=== PATIENT | female | born 1990 | race Caucasian/White ===

== ENCOUNTER 2019-10-23 23:23 | Inpatient (IN) ==
[2019-10-23] MEDS ORDERED: ACTIVATED CHARCOAL/SORBITOL 25 GM/120 ML TUBE PO STA (23:40)
--- NOTE | 2019-10-23 23:43 | Emergency Department Note ---
History of Present Illness General Chief complaint: Overdose (Intentional) Stated complaint: Ibuprophen OD Time Seen by Provider: 10/23/19 23:40 Source: patient Mode of arrival: EMS Limitations: no limitations History of Present Illness Provider complaint: intentional overdose Onset (ago): hour(s) 1 Associated symptoms: + denies other symptoms Treatments prior to arrival: none This 29-year-old female brought in from home via EMS due to intentional overdose. Patient states she does have a history of anxiety and depression and does do weekly telehealth visits with a therapist. Patient states she has previously had suicidal ideation and thoughts of OD but did not actually attempt. Patient states proximally 1 hour ago due to increased thoughts of depression and suicidality, she overdosed on a handful of 200 mg ibuprofen tablets. Patient states she estimates she took 30 tablets. Patient states following this she felt worse and confided in her fianc. Fianc called 911. Patient states she tried to induce emesis by sticking a toothbrush in the back of her throat however upon vomiting she only regurgitated clear fluid, no pill fragments were noted. Patient denies any other nausea vomiting, stomach pain, dizziness, headaches. Patient states she was drinking alcohol earlier in the night as well. Denies any additional coingestion. Patient states the isolation at home has contributed to her worsening symptoms as well as recent loss of her job due to the current pandemic. Pt seen during a time of high acuity and national emergency pandemic while wearing PPE. Home Medications Home Medications Medication Instructions Recorded Confirmed Type citalopram 20 mg PO DAILY 10/24/19 10/24/19 History Allergies Allergy/AdvReac Type Severity Reaction Status Date / Time No Known Allergies Allergy Unverified 10/24/19 00:10 Past Med/Surg History Medical History Depression Social History Preferred Language: Brazilian Communication Ability: Effective Beliefs That Will Affect Care: None Feels Safe at Home: Yes Smoking Status: Never smoker Review of Systems See HPI for pertinent positives & negatives. and A total of 10 systems reviewed and were otherwise negative Physical Exam Vital Signs Vital Signs - 24 hr 10/23/19 23:42 10/23/19 23:44 10/23/19 23:51 Temperature 36.9 C Temperature Source Oral Pulse Rate 92 H 78 Pulse Rate [Apical] Pulse Rate from SpO2 Sensor 91 H Respiratory Rate 19 15 Respiratory Effort / Characteristics Non-Labored Spontaneous Respiratory Depth Normal Blood Pressure 126/79 126/79 Blood Pressure [Left Arm] Blood Pressure Mean 87 94 Blood Pressure Mean [Left Arm] Pulse Oximetry 96 99 Oxygen Delivery Method Room Air Room Air Sepsis Recent Fever Within 48 Hours No Sepsis New/Unexplained Change in Mental Status No Sepsis Action Taken by Nursing No Action Required 10/24/19 00:00 10/24/19 00:02 10/24/19 00:30 Temperature Temperature Source Pulse Rate 74 77 Pulse Rate [Apical] 74 77 Pulse Rate from SpO2 Sensor 75 77 Respiratory Rate 23 21 18 Respiratory Effort / Characteristics Respiratory Depth Blood Pressure 133/80 125/85 Blood Pressure [Left Arm] 133/80 125/85 Blood Pressure Mean 90 88 Blood Pressure Mean [Left Arm] 97 98 Pulse Oximetry 97 100 100 Oxygen Delivery Method Room Air Room Air Sepsis Recent Fever Within 48 Hours Sepsis New/Unexplained Change in Mental Status Sepsis Action Taken by Nursing 10/24/19 01:00 10/24/19 01:11 10/24/19 02:07 Temperature Temperature Source Pulse Rate 94 H 73 Pulse Rate [Apical] 76 Pulse Rate from SpO2 Sensor 93 H 73 Respiratory Rate 19 18 18 Respiratory Effort / Characteristics Respiratory Depth Blood Pressure 124/89 131/73 Blood Pressure [Left Arm] 124/89 Blood Pressure Mean 96 90 Blood Pressure Mean [Left Arm] 100 Pulse Oximetry 98 98 95 Oxygen Delivery Method Room Air Room Air Sepsis Recent Fever Within 48 Hours Sepsis New/Unexplained Change in Mental Status Sepsis Action Taken by Nursing GENERAL: alert, well appearing, well nourished, no distress, non-toxic, tearful, anxious EYE EXAM: normal conjunctiva, PERRL and EOM's grossly intact OROPHARYNX: no exudate, no erythema, lips, buccal mucosa, and tongue normal and mucous membranes are moist NECK: supple, no nuchal rigidity, no adenopathy, non-tender LUNGS: Clear to auscultation. Normal chest wall mechanics, no w/r/r HEART: no murmurs, S1 normal and S2 normal ABDOMEN: abdomen soft, non-tender, normo-active bowel sounds, no masses, no rebound or guarding. BACK: Back is symmetrical on inspection and there is no deformity, no midline tenderness, no CVA tenderness. SKIN: no rashes and no bruising UPPER EXTREMITIES: upper extremities are grossly normal. FROM, nml pulses b/l. LOWER EXTREMITIES: No pitting edema. FROM, nml pulses b/l. NEURO EXAM: Normal sensorium, cranial nerves II-XII grossly intact, normal speech, no gross weakness of arms, no gross weakness of legs. Gross sensation intact. Course Course 0118: Pt updated on results. No new or evolving symptoms. 0230: Case discussed with Poison Control as a precaution. Obs for 4 hours after ingestion and then can be medically cleared. 0500: Pt seen and evaluated by psych behavioral health case manager. Pt admitted voluntarily. Pt accepted to [facility]. Administered Medications Citalopram Hydrobromide (Celexa) 20 mg PO DAILY THANIA Stop: 11/23/19 10:14 Last Admin: 10/25/19 08:20 Dose: 20 mg Documented by: [id number] Admin: 10/24/19 11:16 Dose: 10 mg Documented by: [id number] Pantoprazole Sodium (Protonix) 40 mg PO QAM THANIA Stop: 10/26/19 09:01 Last Admin: 10/25/19 08:20 Dose: 40 mg Documented by: [id number] Admin: 10/24/19 11:16 Dose: 40 mg Documented by: [id number] Discontinued Medications Charcoal/Sorbitol (Actidose/Sorbitol 25gm Liq) 50 gm PO NOW STA Stop: 10/23/19 23:41 Last Admin: 10/24/19 00:11 Dose: 50 gm Documented by: [id number] Sodium Chloride (Nss) 500 mls @ 999 mls/hr IV .Q31M THANIA Stop: 11/03/19 10:00 Last Admin: 10/24/19 02:01 Dose: Not Given Documented by: [id number] Admin: 10/24/19 02:01 Dose: Not Given Documented by: [id number] Infusion: 10/24/19 02:00 Dose: 0 mls/hr Documented by: [id number] Admin: 10/24/19 01:00 Dose: 999 mls/hr Documented by: [id number] Infusion: 10/24/19 00:56 Dose: 0 mls/hr Documented by: [id number] Admin: 10/24/19 00:03 Dose: 999 mls/hr Documented by: [id number] Ondansetron HCl (Zofran Odt) 4 mg PO NOW STA Stop: 10/24/19 04:35 Last Admin: 10/24/19 04:42 Dose: 4 mg Documented by: [id number] Medical Decision Making Differential Diagnosis Overdose, toxicologic, infection, hypoglycemia, electrolyte abnormalities, cardiac sources, intracerebral event, neurologic, trauma, mood disorder, infection, hypoglycemia, electrolyte abnormalities, cardiac sources, intracerebral event, toxicologic, neurologic, as well as others. Medical Records Attestation: I reviewed the patient's medical records. Home Medications Current Medication List: was personally reviewed by me Laboratory Data Attestation: I reviewed the patient's lab results. Result diagrams: 10/23/19 23:54 10/24/19 02:28 Lab Results 10/23/19 10/23/19 10/23/19 Range/Units 23:54 23:54 23:54 WBC 5.42 (4.8-10.8) K/uL RBC 4.11 L (4.2-5.4) M/uL Hgb 12.8 (12.0-16.0) g/dL Hct 38.0 (37-47) % MCV 92.5 (80-100) fL MCH 31.1 (25-34) pg MCHC 33.7 (32-36) g/dL RDW Std Deviation 40.4 (36.4-46.3) fL RDW Coeff of Alo 11.9 (11.5-14.5) % Plt Count 315 (130-400) K/uL MPV 9.5 (7.4-10.4) fL Immature Gran % (Auto) 0.2 % Neut % (Auto) 53.9 % Lymph % (Auto) 34.1 % [place] % (Auto) 4.1 % Eos % (Auto) 5.7 % Baso % (Auto) 2.0 % Immature Gran # (Auto) 0.01 (0.00-0.02) K/uL Neut # (Auto) 2.92 (1.4-6.5) K/uL Lymph # (Auto) 1.85 (1.2-3.4) K/uL [place] # (Auto) 0.22 (0.11-0.59) K/uL Eos # (Auto) 0.31 (0-0.5) K/uL Baso # (Auto) 0.11 (0-0.2) K/uL Sodium 137 (136-145) mmol/L Potassium 4.0 (3.5-5.1) mmol/L Chloride 103 (98-107) mmol/L Carbon Dioxide 27 (21-32) mmol/L Anion Gap 7.0 (3-11) BUN 8 (7-18) mg/dl Creatinine 0.78 (0.6-1.2) mg/dl Est Cr Clr Drug Dosing 86.2 ml/min Est GFR ( Amer) 119.1 Est GFR (Non-Af Amer) 102.7 BUN/Creatinine Ratio 10.8 (10-20) Glucose 90 (70-99) mg/dl Calcium 8.8 (8.5-10.1) mg/dl Magnesium 2.2 (1.8-2.4) mg/dl Total Bilirubin 0.2 (0.2-1) mg/dl AST 15 (15-37) U/L ALT 19 (12-78) U/L Alkaline Phosphatase 67 (45-117) U/L Total Protein 8.2 (6.4-8.2) gm/dl Albumin 4.5 (3.4-5.0) gm/dl Globulin 3.7 (2.5-4.0) gm/dl Albumin/Globulin Ratio 1.2 (0.9-2) Lipase 97 (73-393) U/L HCG, Qual (Negative) Specimen Hemolysis Urine Color Urine Appearance (Clear) Urine pH (4.5-7.5) Ur Specific Bailey (1.000-1.030) Urine Protein (Negative) Urine Glucose (UA) (Negative) Urine Ketones (Negative) Urine Blood (Negative) Urine Nitrite (Negative) Urine Bilirubin (Negative) Urine Urobilinogen (Negative) Ur Leukocyte Esterase (Negative) Salicylates < 1.7 L (2.8-20) mg/dl Urine Opiates Screen (Neg) Ur Methadone, Qual (Neg) Acetaminophen < 2 L (10-30) ug/ml Urine Barbiturates (Neg) Ur Phencyclidine (PCP) (Neg) U Amphetamin/Meth Scrn (Neg) MDMA (Ecstasy) Screen (Neg) U Benzodiazepines Scrn (Neg) Ur Cocaine Metabolite (Neg) U Marijuana (THC) Screen (Neg) Ethyl Alcohol mg/dL (0-3) mg/dl 05/24/20 05/24/20 05/25/20 Range/Units 23:54 23:54 00:05 WBC (4.8-10.8) K/uL RBC (4.2-5.4) M/uL Hgb (12.0-16.0) g/dL Hct (37-47) % MCV (80-100) fL MCH (25-34) pg MCHC (32-36) g/dL RDW Std Deviation (36.4-46.3) fL RDW Coeff of Alo (11.5-14.5) % Plt Count (130-400) K/uL MPV (7.4-10.4) fL Immature Gran % (Auto) % Neut % (Auto) % Lymph % (Auto) % [place] % (Auto) % Eos % (Auto) % Baso % (Auto) % Immature Gran # (Auto) (0.00-0.02) K/uL Neut # (Auto) (1.4-6.5) K/uL Lymph # (Auto) (1.2-3.4) K/uL [place] # (Auto) (0.11-0.59) K/uL Eos # (Auto) (0-0.5) K/uL Baso # (Auto) (0-0.2) K/uL Sodium (136-145) mmol/L Potassium (3.5-5.1) mmol/L Chloride (98-107) mmol/L Carbon Dioxide (21-32) mmol/L Anion Gap (3-11) BUN (7-18) mg/dl Creatinine (0.6-1.2) mg/dl Est Cr Clr Drug Dosing ml/min Est GFR ( Amer) Est GFR (Non-Af Amer) BUN/Creatinine Ratio (10-20) Glucose (70-99) mg/dl Calcium (8.5-10.1) mg/dl Magnesium (1.8-2.4) mg/dl Total Bilirubin (0.2-1) mg/dl AST (15-37) U/L ALT (12-78) U/L Alkaline Phosphatase (45-117) U/L Total Protein (6.4-8.2) gm/dl Albumin (3.4-5.0) gm/dl Globulin (2.5-4.0) gm/dl Albumin/Globulin Ratio (0.9-2) Lipase (73-393) U/L HCG, Qual Negative (Negative) Specimen Hemolysis Urine Color Urine Appearance (Clear) Urine pH (4.5-7.5) Ur Specific Bailey (1.000-1.030) Urine Protein (Negative) Urine Glucose (UA) (Negative) Urine Ketones (Negative) Urine Blood (Negative) Urine Nitrite (Negative) Urine Bilirubin (Negative) Urine Urobilinogen (Negative) Ur Leukocyte Esterase (Negative) Salicylates (2.8-20) mg/dl Urine Opiates Screen Neg (Neg) Ur Methadone, Qual Neg (Neg) Acetaminophen (10-30) ug/ml Urine Barbiturates Neg (Neg) Ur Phencyclidine (PCP) Neg (Neg) U Amphetamin/Meth Scrn Neg (Neg) MDMA (Ecstasy) Screen Neg (Neg) U Benzodiazepines Scrn Neg (Neg) Ur Cocaine Metabolite Neg (Neg) U Marijuana (THC) Screen Neg (Neg) Ethyl Alcohol mg/dL 129.0 H (0-3) mg/dl 10/24/19 10/24/19 Range/Units 00:05 02:28 WBC (4.8-10.8) K/uL RBC (4.2-5.4) M/uL Hgb (12.0-16.0) g/dL Hct (37-47) % MCV (80-100) fL MCH (25-34) pg MCHC (32-36) g/dL RDW Std Deviation (36.4-46.3) fL RDW Coeff of Alo (11.5-14.5) % Plt Count (130-400) K/uL MPV (7.4-10.4) fL Immature Gran % (Auto) % Neut % (Auto) % Lymph % (Auto) % [place] % (Auto) % Eos % (Auto) % Baso % (Auto) % Immature Gran # (Auto) (0.00-0.02) K/uL Neut # (Auto) (1.4-6.5) K/uL Lymph # (Auto) (1.2-3.4) K/uL [place] # (Auto) (0.11-0.59) K/uL Eos # (Auto) (0-0.5) K/uL Baso # (Auto) (0-0.2) K/uL Sodium 143 (136-145) mmol/L Potassium 3.8 (3.5-5.1) mmol/L Chloride 113 H (98-107) mmol/L Carbon Dioxide 25 (21-32) mmol/L Anion Gap 5.0 (3-11) BUN 6 L (7-18) mg/dl Creatinine 0.72 (0.6-1.2) mg/dl Est Cr Clr Drug Dosing 93.4 ml/min Est GFR ( Amer) 131.2 Est GFR (Non-Af Amer) 113.2 BUN/Creatinine Ratio 9.0 L (10-20) Glucose 101 H (70-99) mg/dl Calcium 8.3 L (8.5-10.1) mg/dl Magnesium (1.8-2.4) mg/dl Total Bilirubin (0.2-1) mg/dl AST (15-37) U/L ALT (12-78) U/L Alkaline Phosphatase (45-117) U/L Total Protein (6.4-8.2) gm/dl Albumin (3.4-5.0) gm/dl Globulin (2.5-4.0) gm/dl Albumin/Globulin Ratio (0.9-2) Lipase (73-393) U/L HCG, Qual (Negative) Specimen Hemolysis Urine Color Yellow Urine Appearance Clear (Clear) Urine pH 6.0 (4.5-7.5) Ur Specific Bailey 1.007 (1.000-1.030) Urine Protein Negative (Negative) Urine Glucose (UA) Negative (Negative) Urine Ketones Negative (Negative) Urine Blood Negative (Negative) Urine Nitrite Negative (Negative) Urine Bilirubin Negative (Negative) Urine Urobilinogen Negative (Negative) Ur Leukocyte Esterase Negative (Negative) Salicylates (2.8-20) mg/dl Urine Opiates Screen (Neg) Ur Methadone, Qual (Neg) Acetaminophen (10-30) ug/ml Urine Barbiturates (Neg) Ur Phencyclidine (PCP) (Neg) U Amphetamin/Meth Scrn (Neg) MDMA (Ecstasy) Screen (Neg) U Benzodiazepines Scrn (Neg) Ur Cocaine Metabolite (Neg) U Marijuana (THC) Screen (Neg) Ethyl Alcohol mg/dL (0-3) mg/dl ECG Data Attestation: I personally reviewed and interpreted this ECG as follows: Indication: + toxicologic Rate (beats per minute): 71 Rhythm: + normal sinus ECG Intervals/blocks: + Normal QRS and + Normal QT ECG [place]: + Normal ECG ST segments: + Normal ST segments Blood Pressure Blood Pressure Findings: Normal blood pressure MDM Narrative Pt here after intentional OD. Labs drawn/sent. Pt with intentional ibuprofen OD and alcohol intoxication. Labs reassuring and BMP rechecked as a precaution. VS stable throughout. Pt given IVF and tolerated activated charcoal without difficulty. Given negative labs and no evolution of symptoms in conjunction with pt's report, I do not suspect additional coingestion. I discussed all results with her. Pt in agreement with inpatient treatment at this time after discussion with psych behavioral health case manager. Impression & Plan Intentional ibuprofen overdose, Suicidal ideation, Depression Discharge Plan Visit Data *Final* Discharge Date/Time: 10/24/19 05:08 Chief Complaint: Overdose (Intentional) Stated Complaint: Ibuprophen OD ED Provider: Summer Bazan Discharge Problem: Intentional ibuprofen overdose, Suicidal ideation, Depression Patient Disposition: Admitted As Inpatient Discharge Instructions Interventions: ED Discharge Assessment Last Done: 10/24/19 05:08 Discharge Problem: Intentional ibuprofen overdose Qualifiers: Encounter type: initial encounter Qualified Code(s): T39.312A - Poisoning by propionic acid derivatives, intentional self-harm, initial encounter Depression Qualifiers: Depression Type: unspecified Qualified Code(s): F32.9 - Major depressive disorder, single episode, unspecified
[2019-10-24] MEDS: SODIUM CHLORIDE 0.9% 500 ML IV SCH ×4 (00:03→02:01)
[2019-10-24 00:16] LABS: Basophils # (auto) 0.11 K/uL (0-0.2); Eosinophils # (auto) 0.31 K/uL (0-0.5); Eosinophils % (auto) 5.7 %; Hemoglobin 12.8 g/dL (12.0-16.0); Immature Granulocytes # (auto) 0.01 K/uL (0.00-0.02); Immature Granulocytes % (auto) 0.2 %; Lymphocytes # (auto) 1.85 K/uL (1.2-3.4); Lymphocytes % (auto) 34.1 %; Mean Corpuscular Hemoglobin 31.1 pg (25-34); Mean Corpuscular Hgb Conc 33.7 g/dL (32-36); Mean Corpuscular Volume 92.5 fL (80-100); Mean Platelet Volume 9.5 fL (7.4-10.4); Monocytes # (auto) 0.22 K/uL (0.11-0.59); Monocytes % (auto) 4.1 %; Neutrophils # (auto) 2.92 K/uL (1.4-6.5); Neutrophils % (auto) 53.9 %; Platelet Count 315 K/uL (130-400); RDW Coefficient of Variation 11.9 % (11.5-14.5); RDW Standard Deviation 40.4 fL (36.4-46.3); Red Blood Count 4.11 M/uL (4.2-5.4); White Blood Count 5.42 K/uL (4.8-10.8)
[2019-10-24 00:20] LABS: Appearance Urine Clear (Clear); Bilirubin Urine Negative (Negative); Blood Urine Negative (Negative); Color Urine Yellow; Glucose Urine UA Negative (Negative); Ketones Urine Negative (Negative); Leukocyte Esterase Urine Negative (Negative); Nitrite Urine Negative (Negative); Protein Urine Negative (Negative); Specific Gravity Urine 1.007 (1.000-1.030); Urobilinogen Urine Negative (Negative)
[2019-10-24 00:40] LABS: Amphetamines+Metham, Urine Neg (Neg); Barbiturates, Urine Neg (Neg); Benzodiazepine, Urine Neg (Neg); Cocaine, Urine Neg (Neg); MDMA (Ecstacy), Urine Neg (Neg); Methadone, Urine Neg (Neg); Opiate, Urine Neg (Neg); Phencyclidine, Urine Neg (Neg)
[2019-10-24 00:41] LABS: Albumin Globulin Ratio 1.2 (0.9-2); Albumin Level 4.5 gm/dl (3.4-5.0); BUN Creatinine Ratio 10.8 (10-20); Bilirubin,Total 0.2 mg/dl (0.2-1); Calcium 8.8 mg/dl (8.5-10.1); Creatinine Clr Calc Pharmacy 86.2 ml/min; Est GFR (African American) 119.1; Est GFR (Non-African American) 102.7; Globulin 3.7 gm/dl (2.5-4.0); Magnesium 2.2 mg/dl (1.8-2.4); Total Protein 8.2 gm/dl (6.4-8.2)
[2019-10-24 00:47] LABS: Acetaminophen < 2 ug/ml (10-30); Salicylate < 1.7 mg/dl (2.8-20)
[2019-10-24 00:57] LABS: Pregnancy Test, Serum Negative (Negative)
[2019-10-24 02:53] LABS: Calcium 8.3 mg/dl (8.5-10.1); Creatinine Clr Calc Pharmacy 93.4 ml/min; Est GFR (African American) 131.2; Est GFR (Non-African American) 113.2; Potassium 3.8 mmol/L (3.5-5.1)
[2019-10-24] MEDS ORDERED: ONDANSETRON 4 MG OD TAB PO STA (04:34)
[2019-10-24] MEDS ORDERED: SODIUM CHLORIDE 0.65% NA SOLN 45 ML (OCEAN) PRN (05:41)
[2019-10-24] MEDS ORDERED: MAGNESIUM HYDROXIDE SUSP 30 ML UDC PO PRN (05:41)
[2019-10-24] MEDS ORDERED: ALUMINUM/MAGNESIUM SUSP 30 ML UDC PO PRN (05:41)
[2019-10-24] MEDS ORDERED: ACETAMINOPHEN 325 MG TAB PO PRN (05:41)
[2019-10-24] MEDS ORDERED: BISMUTH SUBSALICYLATE PER ML OMNICELL CHARGE PO PRN (05:41)
[2019-10-24] MEDS: PANTOprazole 40 MG TAB PO SCH (11:16)
[2019-10-24] MEDS: CITALOPRAM 20 MG TAB PO SCH (11:16)
--- NOTE | 2019-10-24 12:12 | History & Physical ---
Date of Service October 24, 2019 Impression / Recommendations Impression 29 yo female with major depressive disorder admit s/p ibuprofen OD as a suicide attempt. She denies any history of paul. (1) Depression: The patient was admitted to the [facility] ([facility]) on q15 min checks (behavioral with suicide precautions) for safety. The patient will participate in group, recreational, and milieu therapies and will be offered additional individual and family sessions as clinically appropriate. It is not clear that her symptoms are a complete failure of Celexa as pandemic is significant contributing factor, past trials currently not available. Will give Celexa 10 mg today as having some GI upset following OD, declines Zofran, accepting of pantoprazole short course. Consider Celexa 15 mg vs other agent when confirm previous med trials. Depression Type: unspecified Qualified Code(s): F32.9 - Major depressive disorder, single episode, unspecified Inventory Assets Strengths: intelligence, partial wage/benefits, supportive fiance, reports positive relationship with family Needs: safety plan Risk Factors Assessment : Yes Do You Have Access To A Gun?: Yes (boyfriends) Substance Use Disorders: No Previous Attempt: No Family History of Suicide: No Protective Factors Assessment Employed: No (recently furloughed) Stable Relationships: Yes Supportive Family: Yes Psychiatric History Identifying Data ESTHER BLACKBURN is a 29-year-old F who currently lives in [place] with her fiance, has a history of depression, and was admitted on 10/24/19 05:02 on a 201 voluntary commitment s/p ibuprofen OD. Chief Complaint "I felt bad, then we got into a fight, and then I felt worse". History of Present Illness Esther states she has had some suicidal thoughts before but no attempts. The attempt itself was impulsive after a few drinks. She grabbed a handful, estimated 30 of 200 mg Ibuprofen and started to feel sick after. She attempted to induce vomiting but ultimately told her fiance and he called an ambulance. TATE on presentation to the ED was 129. She received charcoal, IVF, and repeat labs and was medically cleared for admission as unable to contract for safety outside of the hospital. Esther states she has been in treatment for depressive symptoms, mainly low mood/negative thoughts for 2 years. Celexa has been "good overall" but doesn't tolerate higher doses "it's like a not in my chest" and states that the past 2 months have been extremely difficult. 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 She is losing routine at home, she generally takes her medication each day but not at the same time. She tries to clean the house but overall not much to do until fiance gets home. Alone she feels guilty and starts to worry about their March and whether it will be able to go as planned. The stress is causing her not to eat well throughout the day and she doesn't seem to enjoy leisure activities as much. Past Psychiatric History Current Psychiatric Diagnosis: anxiety, Depression Outpatient Services: [facility] for 2 years with therapy with Marilyn Keenan. Previous Psych Admissions: none Do You Have Access To A Gun?: Yes (boyfriends) History of Previous Suicide Attempt: No Past Medication Trials: she notes trials of 2 prior antidepressants prior to C elexa, has tolerated Celexa the best, never tried 15 mg Celexa. Note attempted to find names of medication in external med history but predates what is pulling. CRISTELA signed for records. Past Head Trauma/Neuro History History of Concussion/Seizure: No Allergies Allergy/AdvReac Type Severity Reaction Status Date / Time No Known Allergies Allergy Unverified 10/24/19 00:10 Home Medications Home Medications Medication Instructions Recorded Confirmed Type citalopram 20 mg PO DAILY 10/24/19 10/24/19 History Family History Family History of: Depression Family Mental Health History Comment: father, grandfather Alcohol History Hx of Alcohol Use Over the Past 12 Months: Yes (glass of wine or beer a night) AUDIT Total Score: 2 Smoking Use Smoking Status: Never smoker Substance History Hx of Prescription Med Misuse Over the Past 12 Months: No Hx of Over the Counter Med Misuse Over the Past 12 Months: No Hx of Inhalent Misuse Over the Past 12 Months: No Hx of Organic Substance Use Over the Past 12 Months: No Hx of Illegal Substances/Street Drug Use Over Past 12 Months: No Problems as a Result of Past Substance Use: None Identified Problems as a Result of Past Substance Use Comments: denies Personal History Living Arrangements: Home Childhood: moved alot as father --currently parents in [place], has a bro and sister in [place] and another brother in [place] Highest Grade Completed: College Employment Status: Physical Education Teacher Employed (but furloughed) Beliefs That Will Affect Care: None Current Legal Problems: No Hx Legal Problems: No Hx Traumatic Life Events: No Patient History Medical History Depression Social History Preferred Language: Yemeni Communication Ability: Effective Beliefs That Will Affect Care: None Feels Safe at Home: Yes Smoking Status: Never smoker Review of Systems Review of Systems: All systems reviewed & are unremarkable except as noted in HPI & below Physical Exam Psychiatric: Orientation: alert and oriented x 3 Apperance: appropriately dressed and appropriately groomed Eye Contact: + fair eye contact Motor Behavior: steady gait and station and no abnormal motor movements Speech: normal rate/rhythm/volume of speech Affect: + depressed affect Mood: + depressed mood Thought Process: goal directed thought process Thought Content: reality based without delusions did not voice regret of attempt, OK with being hospitalized, no SI this am but unable to contract for safety outside of the hospital. Homicidal Thoughts: denies homicidal thoughts Hallucinations: no auditory hallucinations and no visual hallucinations Cognition: recent memory grossly intact, attention grossly intact and language grossly intact Estimated Intelligence: consistent with education level Insight: + limited insight Judgement: + limited judgement Vital Signs (Past 24 Hours): Last Vital Signs Temp 36.7 C 10/24/19 06:44 Pulse 89 10/24/19 06:45 Resp 18 10/24/19 06:44 BP 102/69 10/24/19 06:45 Pulse Ox 97 10/24/19 05:08 Exam Statement: A physical exam was performed in the ED by Dr. Bazan for the purposes of medical clearance. I accept that physical as correct and adequate for the purposes of the inpatient physical exam. Results & Data ([facility]) Laboratory Results Laboratory Results - last 24 hr 10/23/19 10/23/19 10/23/19 23:54 23:54 23:54 WBC 5.42 RBC 4.11 L Hgb 12.8 Hct 38.0 MCV 92.5 MCH 31.1 MCHC 33.7 RDW Std Deviation 40.4 RDW Coeff of Alo 11.9 Plt Count 315 MPV 9.5 Immature Gran % (Auto) 0.2 Neut % (Auto) 53.9 Lymph % (Auto) 34.1 [place] % (Auto) 4.1 Eos % (Auto) 5.7 Baso % (Auto) 2.0 Immature Gran # (Auto) 0.01 Neut # (Auto) 2.92 Lymph # (Auto) 1.85 [place] # (Auto) 0.22 Eos # (Auto) 0.31 Baso # (Auto) 0.11 Sodium 137 Potassium 4.0 Chloride 103 Carbon Dioxide 27 Anion Gap 7.0 BUN 8 Creatinine 0.78 Est Cr Clr Drug Dosing 86.2 Est GFR ( Amer) 119.1 Est GFR (Non-Af Amer) 102.7 BUN/Creatinine Ratio 10.8 Glucose 90 Calcium 8.8 Magnesium 2.2 Total Bilirubin 0.2 AST 15 ALT 19 Alkaline Phosphatase 67 Total Protein 8.2 Albumin 4.5 Globulin 3.7 Albumin/Globulin Ratio 1.2 Lipase 97 HCG, Qual Specimen Hemolysis Urine Color Urine Appearance Urine pH Ur Specific [place] Urine Protein Urine Glucose (UA) Urine Ketones Urine Blood Urine Nitrite Urine Bilirubin Urine Urobilinogen Ur Leukocyte Esterase Salicylates < 1.7 L Urine Opiates Screen Ur Methadone, Qual Acetaminophen < 2 L Urine Barbiturates Ur Phencyclidine (PCP) U Amphetamin/Meth Scrn MDMA (Ecstasy) Screen U Benzodiazepines Scrn Ur Cocaine Metabolite U Marijuana (THC) Screen Ethyl Alcohol mg/dL 10/23/19 10/23/19 10/24/19 23:54 23:54 00:05 WBC RBC Hgb Hct MCV MCH MCHC RDW Std Deviation RDW Coeff of Alo Plt Count MPV Immature Gran % (Auto) Neut % (Auto) Lymph % (Auto) [place] % (Auto) Eos % (Auto) Baso % (Auto) Immature Gran # (Auto) Neut # (Auto) Lymph # (Auto) [place] # (Auto) Eos # (Auto) Baso # (Auto) Sodium Potassium Chloride Carbon Dioxide Anion Gap BUN Creatinine Est Cr Clr Drug Dosing Est GFR ( Amer) Est GFR (Non-Af Amer) BUN/Creatinine Ratio Glucose Calcium Magnesium Total Bilirubin AST ALT Alkaline Phosphatase Total Protein Albumin Globulin Albumin/Globulin Ratio Lipase HCG, Qual Negative Specimen Hemolysis Urine Color Urine Appearance Urine pH Ur Specific [place] Urine Protein Urine Glucose (UA) Urine Ketones Urine Blood Urine Nitrite Urine Bilirubin Urine Urobilinogen Ur Leukocyte Esterase Salicylates Urine Opiates Screen Neg Ur Methadone, Qual Neg Acetaminophen Urine Barbiturates Neg Ur Phencyclidine (PCP) Neg U Amphetamin/Meth Scrn Neg MDMA (Ecstasy) Screen Neg U Benzodiazepines Scrn Neg Ur Cocaine Metabolite Neg U Marijuana (THC) Screen Neg Ethyl Alcohol mg/dL 129.0 H 10/24/19 10/24/19 00:05 02:28 WBC RBC Hgb Hct MCV MCH MCHC RDW Std Deviation RDW Coeff of Alo Plt Count MPV Immature Gran % (Auto) Neut % (Auto) Lymph % (Auto) [place] % (Auto) Eos % (Auto) Baso % (Auto) Immature Gran # (Auto) Neut # (Auto) Lymph # (Auto) [place] # (Auto) Eos # (Auto) Baso # (Auto) Sodium 143 Potassium 3.8 Chloride 113 H Carbon Dioxide 25 Anion Gap 5.0 BUN 6 L Creatinine 0.72 Est Cr Clr Drug Dosing 93.4 Est GFR ( Amer) 131.2 Est GFR (Non-Af Amer) 113.2 BUN/Creatinine Ratio 9.0 L Glucose 101 H Calcium 8.3 L Magnesium Total Bilirubin AST ALT Alkaline Phosphatase Total Protein Albumin Globulin Albumin/Globulin Ratio Lipase HCG, Qual Specimen Hemolysis Urine Color Yellow Urine Appearance Clear Urine pH 6.0 Ur Specific [place] 1.007 Urine Protein Negative Urine Glucose (UA) Negative Urine Ketones Negative Urine Blood Negative Urine Nitrite Negative Urine Bilirubin Negative Urine Urobilinogen Negative Ur Leukocyte Esterase Negative Salicylates Urine Opiates Screen Ur Methadone, Qual Acetaminophen Urine Barbiturates Ur Phencyclidine (PCP) U Amphetamin/Meth Scrn MDMA (Ecstasy) Screen U Benzodiazepines Scrn Ur Cocaine Metabolite U Marijuana (THC) Screen Ethyl Alcohol mg/dL Current Inpatient Medications Current Inpatient Medications: Current Inpatient Medications Acetaminophen (Tylenol) 650 mg PO Q4H PRN PRN Reason: Headache or Minor Fever Stop: 11/23/19 05:40 Al Hydrox/Mg Hydrox/Simethicone (Maalox) 30 ml PO Q4H PRN PRN Reason: GI Upset Stop: 11/23/19 05:40 Bismuth Subsalicylate (Kaopectate) 15 ml PO PRN PRN PRN Reason: Loose Stool Stop: 11/23/19 05:40 Citalopram Hydrobromide (Celexa) 20 mg PO DAILY THANIA Stop: 06/24/20 10:14 Last Admin: 10/24/19 11:16 Dose: 10 mg Documented by: Hydroxyzine HCl (Vistaril) 50 mg PO HSZ PRN PRN Reason: Insomnia Stop: 11/23/19 05:40 Hydroxyzine HCl (Vistaril) 25 mg PO Q4H PRN PRN Reason: Anxiety Stop: 11/23/19 05:40 Magnesium Hydroxide (Milk Of Magnesia) 30 ml PO DAILY PRN PRN Reason: Constipation Stop: 11/23/19 05:40 Pantoprazole Sodium (Protonix) 40 mg PO QAM THANIA Stop: 10/26/19 09:01 Last Admin: 10/24/19 11:16 Dose: 40 mg Documented by: Sodium Chloride ([place] Nasal) 1 - 2 sprays NA PRN PRN PRN Reason: Nasal Dryness/Congestion Stop: 11/23/19 05:40
--- NOTE | 2019-10-24 13:05 | Electrocardiogram Report ---
Test Reason : Blood Pressure : / mmHG Vent. Rate : 071 BPM Atrial Rate : 071 BPM P-R Int : 118 ms QRS Dur : 074 ms QT Int : 358 ms P-R-T Axes : -42 068 036 degrees QTc Int : 389 ms The first 2 beats represent NSR then Unusual P axis, possible ectopic atrial rhythm Abnormal ECG No previous ECGs available Confirmed by Juan A Ko ([id number]) on 10/24/2019 1:05:23 PM Referred By: REFERRED SELF Confirmed By:Juan A Ko
[2019-10-25] MEDS: CITALOPRAM 20 MG TAB PO SCH (08:20)
[2019-10-25] MEDS: PANTOprazole 40 MG TAB PO SCH (08:20)
--- NOTE | 2019-10-25 13:33 | Psychiatric Progress Note ---
Date of Service October 25, 2019 Impression / Recommendations Impression 29-year-old female with major depressive disorder who was admitted voluntarily for inpatient psychiatric treatment following an ibuprofen OD as a suicide attempt. She denies any history of paul. The patient will participate in group, recreational, and milieu therapies and will be offered additional individual and family sessions as clinically appropriate. It is not clear that her symptoms are a complete failure of Celexa as pandemic is significant contributing factor, past trials currently not available. Pt was given 10mg of citalopram on admission, which was then increased to 20mg. Pt was reporting GI upset related to her overdose, which is improving. Pt has agreed to a family meeting with her fiance, which is scheduled for this afternoon. (1) Depression: 10/23 - The patient was admitted to the [facility] ([facility] health unit) on q15 min checks (behavioral with suicide precautions) for safety. The patient will participate in group, recreational, and milieu therapies and will be offered additional individual and family sessions as clinically appropriate. It is not clear that her symptoms are a complete failure of Celexa as pandemic is significant contributing factor, past trials currently not available. Will give Celexa 10 mg today as having some GI upset following OD, declines Zofran, accepting of pantoprazole short course. Consider Celexa 15 mg vs other agent when confirm previous med trials. 10/24 - Celexa had been increased to 20mg for this morning's dose. Pt denies exacerbation of anxiety at this time, will continue to monitor. Can consider continuation of 20mg of Celexa versus trial of an alternative agent should anxiety worsen related to the medication - Pt is scheduled for a family meeting with her fiance this afternoon - Has standing Thursday at 1200 appointments with her therapist - Will coordinate appointment with her psychiatrist - Pt denies SI, states that while she is happy she is alive, she is still processing a lot at this time Inventory Assets Strengths: intelligence, partial wage/benefits, supportive fiance, reports positive relationship with family Needs: safety plan Risk Factors Assessment : Yes Do You Have Access To A Gun?: Yes (boyfriends) Substance Use Disorders: No Previous Attempt: No Family History of Suicide: No Protective Factors Assessment Employed: No (recently furloughed) Stable Relationships: Yes Supportive Family: Yes Interval History Identifying Information EBONY BLACKBURN is a 29-year-old F who currently lives in [place] with her ficlarita, has a history of depression, and was admitted on 10/24/19 05:02 on a 201 voluntary commitment s/p ibuprofen OD. Chief Complaint "Um, good. The day started off a little rougher." Review of Systems Notes Constitutional: denied Cardiovascular: denied Respiratory: denied Gastrointestinal: mild GI upset, improved from last evening Neurological: denied Psychiatric: denies symptoms other than stated above Total of at least 10 systems reviewed, pertinent positives as above and in HPI. Sleep Information Total Hours of Sleep: 6.5 Sleep Comments: pt on q-15 minute checks Meal Information Percent Meal Consumed - Breakfast: 25 Percent Meal Consumed - Lunch: 10 Percent Meal Consumed - Dinner: 100 Nutrition Comment: some GI upset r/t O/D; is taking small sips of pratik hayden Subjective Subjective Patient was seen & assessed and interval progress reviewed with treatment team. Staff report the patient has reported situational stressors which she believes to be related to her overdose. Pt will be encouraged to schedule a family meeting with her fiance, or other identified support. Pt was seen today to assess progress since admission. Pt states she is doing better now, admitting that her morning "started off a little rougher." Pt states that she found herself processing recent events and "it all sunk in. Disbelief, embarrassment, shame." Pt initially states "I don't know" when asked about her reflection on her suicide attempt. After thinking a bit longer, she states "I think I'm ultimately happy I'm alive, but it's still fresh. I can't really say." Pt does deny active SI presently, but admits to ongoing stressors. Pt is excited for her family meeting with her fiance this afternoon, stating "I really miss him." She states she has also been calling her parents and siblings today and states most of them are supportive as well. Pt denies any concerns related to the family meeting. She does express concern related to titration of citalopram, r eiterating the exacerbation of anxiety that she noticed with a previous trial of 20mg. She states that she is not yet experiencing similar feelings, but was reassured that we could discuss other medication options if this should occur. Pt states she has standing appointments with her therapist on Wednesdays at noon, and is understanding of need to confirm a psychiatry appointment. Otherwise, the patient reports benefit from processing with staff in groups and individually. She denies other needs at this time. Physical Exam Psychiatric Orientation: alert, oriented x 3 and cooperative (and pleasant) Apperance: appropriately dressed, appropriately groomed and appeared stated age Eye Contact: good eye contact Motor Behavior: steady gait and station and no abnormal motor movements Speech: normal rate/rhythm/volume of speech Affect: + anxious affect and mood congruent with affect Mood: + depressed mood ("good, the day started off a little rougher") and + anxious mood Thought Process: goal directed thought process, clear/coherent thought process and thought association intact Thought Content: reality based without delusions and + guilt (reporting shame related to her overdose); no hopelessness Suicidal Thoughts: denies suicidal thoughts Homicidal Thoughts: denies homicidal thoughts Hallucinations: no auditory hallucinations and no visual hallucinations Cognition: attention grossly intact and language grossly intact Estimated Intelligence: consistent with education level Insight: + fair insight Judgement: + fair judgement Vital Signs (Past 24 Hours) Last Vital Signs Temp 36.7 C 10/25/19 06:38 Pulse 85 10/25/19 06:38 Resp 18 10/25/19 06:38 BP 108/70 10/25/19 06:38 Pulse Ox 97 10/24/19 05:08 Results & Data ([facility]) Current Inpatient Medications Current Inpatient Medications: Current Inpatient Medications Acetaminophen (Tylenol) 650 mg PO Q4H PRN PRN Reason: Headache or Minor Fever Stop: 11/23/19 05:40 Al Hydrox/Mg Hydrox/Simethicone (Maalox) 30 ml PO Q4H PRN PRN Reason: GI Upset Stop: 11/23/19 05:40 Bismuth Subsalicylate (Kaopectate) 15 ml PO PRN PRN PRN Reason: Loose Stool Stop: 11/23/19 05:40 Citalopram Hydrobromide (Celexa) 20 mg PO DAILY THANIA Stop: 11/23/19 10:14 Last Admin: 10/25/19 08:20 Dose: 20 mg Documented by: Hydroxyzine HCl (Vistaril) 50 mg PO HSZ PRN PRN Reason: Insomnia Stop: 11/23/19 05:40 Hydroxyzine HCl (Vistaril) 25 mg PO Q4H PRN PRN Reason: Anxiety Stop: 11/23/19 05:40 Magnesium Hydroxide (Milk Of Magnesia) 30 ml PO DAILY PRN PRN Reason: Constipation Stop: 11/23/19 05:40 Pantoprazole Sodium (Protonix) 40 mg PO QAM THANIA Stop: 10/26/19 09:01 Last Admin: 10/25/19 08:20 Dose: 40 mg Documented by: Sodium Chloride ([place] Nasal) 1 - 2 sprays NA PRN PRN PRN Reason: Nasal Dryness/Congestion Stop: 11/23/19 05:40 Mental Health & Subst Abuse Tx Therapist Name of Therapist: Marilyn Keenan Date of Therapist Appointment: 10/26/19 Time of Therapist Appointment: 1200 Post Discharge Appointments Primary Care Physician Name Of Family Doctor: None (1) Depression Depression Type: unspecified Qualified Code(s): F32.9 - Major depressive disorder, single episode, unspecified
[2019-10-26] MEDS: CITALOPRAM 20 MG TAB PO SCH (08:44)
[2019-10-26] MEDS: PANTOprazole 40 MG TAB PO SCH (08:44)
--- NOTE | 2019-10-26 14:09 | Psychiatric Progress Note ---
Date of Service October 26, 2019 Impression / Recommendations Impression 29-year-old female with major depressive disorder who was admitted voluntarily for inpatient psychiatric treatment following an ibuprofen OD as a suicide attempt. She denies any history of paul. The patient will participate in group, recreational, and milieu therapies and will be offered additional individual and family sessions as clinically appropriate. It is not clear that her symptoms are a complete failure of Celexa as pandemic is significant contributing factor, past trials currently not available. Pt was given 10mg of citalopram on admission, which was then increased to 20mg. Pt was reporting GI upset related to her overdose, which has now resolved. Family meeting was held with the patient's fiance yesterday. He is reported to be supportive and agreed to securing the patient's medication. (1) Depression: 10/23 - The patient was admitted to the [facility] ([facility]) on q15 min checks (behavioral with suicide precautions) for safety. The patient will participate in group, recreational, and milieu therapies and will be offered additional individual and family sessions as clinically appropriate. It is not clear that her symptoms are a complete failure of Celexa as pandemic is significant contributing factor, past trials currently not available. Will give Celexa 10 mg today as having some GI upset following OD, declines Zofran, accepting of pantoprazole short course. Consider Celexa 15 mg vs other agent when confirm previous med trials. 10/24 - Celexa had been increased to 20mg for this morning's dose. Pt denies exacerbation of anxiety at this time, will continue to monitor. Can consider continuation of 20mg of Celexa versus trial of an alternative agent should anxiety worsen related to the medication - Pt is scheduled for a family meeting with her fiance this afternoon - Has standing Thursday at 1200 appointments with her therapist - Will coordinate appointment with her psychiatrist - Pt denies SI, states that while she is happy she is alive, she is still processing a lot at this time 10/25 - Continue Celexa 20mg qAM. Pt reports mildly increased anxiety after taking the medication today, but admits this resolved with several coping strategies. Denies that anxiety is exacerbated as day continues - Family meeting held with patient's fiance yesterday, he is supportive and will reportedly secure medications - Coordinate outpatient appointments - Pt does endorse SI, but states it is in a range that is manageable - does desire to continue to develop effective coping strategies Inventory Assets Strengths: intelligence, partial wage/benefits, supportive fiance, reports positive relationship with family Needs: safety plan Risk Factors Assessment : Yes Do You Have Access To A Gun?: Yes (boyfriends) Substance Use Disorders: No Previous Attempt: No Family History of Suicide: No Protective Factors Assessment Employed: No (recently furloughed) Stable Relationships: Yes Supportive Family: Yes Interval History Identifying Information EBONY BLACKBURN is a 29-year-old F who currently lives in [place] with her fiance, has a history of depression, and was admitted on 10/24/19 05:02 on a 201 voluntary commitment s/p ibuprofen OD. Chief Complaint "Good now, I was feeling really anxious this morning after breakfast." Review of Systems Notes Constitutional: denied Cardiovascular: denied Respiratory: denied Gastrointestinal: denied Neurological: denied Psychiatric: denies symptoms other than stated above Total of at least 10 systems reviewed, pertinent positives as above and in HPI. Sleep Information Total Hours of Sleep: 5.5 Sleep Comments: pt on q-15 minute checks Meal Information Percent Meal Consumed - Breakfast: 90 Percent Meal Consumed - Lunch: 100 Percent Meal Consumed - Dinner: 100 Nutrition Comment: per meal record Subjective Subjective Patient was seen & assessed and interval progress reviewed with treatment team. Staff report the patient had a positive meeting with her fiance yesterday and is hoping to work with staff on recognizing and dealing with "triggers." It was reported that patient had a difficult morning. In group therapy, it was reported the patient was unable to report anything she could live for and was rather tearful. Pt was seen today to assess progress since admission. Pt provi ded verbal consent to allow Stephanie Manuel PA-C to conduct the majority of today's interview with this provider present. Pt states that she is "good now, I was feeling really anxious this morning after breakfast." Pt initially related this anxiety to the 20mg of citalopram that she received, but states "I did some coping skills, showered, drank some tea. That worked really well, so maybe I was just anxious about taking the medication." Pt did report difficulty falling asleep last evening, and reports she took a nap after breakfast as well. Pt does comment on her family meeting yesterday, stating it went "really well." She states that her fiance remains supportive and she feels her parents/siblings are more open to learning about her struggles with mental health. Pt does admit today that she had conducted an internet search several days prior to her overdose, "for how to do something and make it look like an accident." She states she has been struggling recently with guilt related to "how everyone I care about has been affected by this." Pt was encouraged to continue to process these thoughts and feelings with staff. Pt reports interest in discharge "as soon as you guys think I'm ready" but admits to ongoing SI. She is hopeful to continue to develop coping strategies that will assist with managing any future recurrence, as she states "I can remember my first suicidal thoughts in 4th grade. I just hope they go away at some point." Pt maintains that her fiance is supportive and that they had a productive family meeting yesterday. She is able to clearly talk through her safety plan at this time. We discussed estimated length of stay, and anticipated discharge in the next 1-2 days. Pt aware that aftercare appointments will need to be rescheduled as well. She dahlia es other needs or concerns at this time. Physical Exam Psychiatric Orientation: alert, oriented x 3 and cooperative (and pleasant) Apperance: appropriately dressed, appropriately groomed and appeared stated age Eye Contact: good eye contact Motor Behavior: steady gait and station and no abnormal motor movements Speech: normal rate/rhythm/volume of speech Affect: + anxious affect Mood: + depressed mood and + anxious mood (though much improved from this morning) Thought Process: goal directed thought process, clear/coherent thought process and thought association intact Thought Content: reality based without delusions, + hopelessness (intermittently ) and + guilt Suicidal Thoughts: denies suicidal plan and denies suicidal intent; + reports suicidal thoughts reports SI is "not completely resolved, but much less" Homicidal Thoughts: denies homicidal thoughts Hallucinations: no auditory hallucinations and no visual hallucinations Cognition: recent memory grossly intact, attention grossly intact and language grossly intact Estimated Intelligence: consistent with education level Insight: + fair insight Judgement: + fair judgement Vital Signs (Past 24 Hours) Last Vital Signs Temp 36.6 C 10/26/19 06:29 Pulse 94 H 10/26/19 06:30 Resp 18 10/26/19 06:29 BP 110/71 10/26/19 06:30 Pulse Ox 97 10/24/19 05:08 Results & Data (U) Current Inpatient Medications Current Inpatient Medications: Current Inpatient Medications Acetaminophen (Tylenol) 650 mg PO Q4H PRN PRN Reason: Headache or Minor Fever Stop: 11/23/19 05:40 Al Hydrox/Mg Hydrox/Simethicone (Maalox) 30 ml PO Q4H PRN PRN Reason: GI Upset Stop: 11/23/19 05:40 Bismuth Subsalicylate (Kaopectate) 15 ml PO PRN PRN PRN Reason: Loose Stool Stop: 11/23/19 05:40 Citalopram Hydrobromide (Celexa) 20 mg PO DAILY THANIA Stop: 11/23/19 10:14 Last Admin: 10/26/19 08:44 Dose: 20 mg Documented by: Hydroxyzine HCl (Vistaril) 50 mg PO HSZ PRN PRN Reason: Insomnia Stop: 11/23/19 05:40 Hydroxyzine HCl (Vistaril) 25 mg PO Q4H PRN PRN Reason: Anxiety Stop: 11/23/19 05:40 Magnesium Hydroxide (Milk Of Magnesia) 30 ml PO DAILY PRN PRN Reason: Constipation Stop: 11/23/19 05:40 Sodium Chloride ([place] Nasal) 1 - 2 sprays NA PRN PRN PRN Reason: Nasal Dryness/Congestion Stop: 11/23/19 05:40 Mental Health & Subst Abuse Tx Psychiatrist Name of Psychiatrist: Dr. Montgomery Psychiatrist's Psychiatric Appointment Comment: [address] [facility] [facility] [address], [address], [place], [place] Therapist Name of Therapist: Marilyn Keenan Therapist's Date of Therapist Appointment: 11/02/19 Time of Therapist Appointment: 1200 Post Discharge Appointments Primary Care Physician Name Of Family Doctor: None (1) Depression Depression Type: unspecified Qualified Code(s): F32.9 - Major depressive disorder, single episode, unspecified
[2019-10-27] MEDS: CITALOPRAM 20 MG TAB PO SCH (08:34)
--- NOTE | 2019-10-27 10:02 | Discharge Summary ---
Date of Service October 27, 2019 History of Present Illness Esther states she has had some suicidal thoughts before but no attempts. The attempt itself was impulsive after a few drinks. She grabbed a handful, estimated 30 of 200 mg Ibuprofen and started to feel sick after. She attempted to induce vomiting but ultimately told her fiance and he called an ambulance. TATE on presentation to the ED was 129. She received charcoal, IVF, and repeat labs and was medically cleared for admission as unable to contract for safety outside of the hospital. Esther states she has been in treatment for depressive symptoms, mainly low mood/negative thoughts for 2 years. Celexa has been "good overall" but doesn't tolerate higher doses "it's like a not in my chest" and states that the past 2 months have been extremely difficult. She is unable to work for [employer] in the [employer] center as the center remains closed. She is losing routine at home, she generally takes her medication each day but not at the same time. She tries to clean the house but overall not much to do until donnie gets home. Alone she feels guilty and starts to worry about their March and whether it will be able to go as planned. The stress is causing her not to eat well throughout the day and she doesn't seem to enjoy leisure activities as much. Physical Exam Psychiatric Orientation: alert, oriented x 3 and cooperative Apperance: appropriately dressed and appropriately groomed Eye Contact: good eye contact Motor Behavior: steady gait and station Speech: normal rate/rhythm/volume of speech Affect: + anxious affect and mood congruent with affect Mood: + anxious mood (stating, "all processes here are new to me and I feel slightly anxious."); no depressed mood (feeling "hopeful") Thought Process: goal directed thought process and clear/coherent thought process Thought Content: reality based without delusions; no hopelessness Suicidal Thoughts: denies suicidal plan and denies suicidal intent reports her SI is much less and more manageable Homicidal Thoughts: denies homicidal thoughts Hallucinations: no auditory hallucinations and no visual hallucinations Cognition: recent memory grossly intact, attention grossly intact and language grossly intact Estimated Intelligence: consistent with education level Insight: good insight Judgement: good judgement Vital Signs (Past 24 Hours) Last Vital Signs Temp 36.4 C 10/27/19 06:24 Pulse 68 10/27/19 06:24 Resp 16 10/27/19 06:24 BP 104/67 10/27/19 06:24 Pulse Ox 97 10/24/19 05:08 Principal Diagnosis Major depressive disorder, recurrent Psychiatric Data Patient was hospitalized for 4 days for major depressive disorder and a suicidal attempt with overdose of ibuprofen. She has been on Celexa 20 mg for the past 2 days and tolerating pretty well even though she experiences mildly increased anxiety right after taking them, which has been managed well with coping skills. Has been participating in groups and community meetings and showing improved mood consistently except occasional anxious moments. Also expressing some groups, which focused on more about triggers of her depression and anxiety and strategies to cope with them, were more helpful and she feels confident using them after being discharged. Due to low self-esteem, she hasn't been convinced or trusted with the relationship with her fiance but a family meeting with him on 10/25/2019 went well and she felt more confident about her relationship. Her mother has been informed regarding her status almost daily basis by nursing staff. Guns are locked securely by her fiance at home and she feels safe at home. Day of Discharge Assessment Nursing staff report that she felt better without significant acutely anxious feeling yesterday evening, participating in a community meeting and groups and was hopeful and optimistic last evening. She spent her free time doing a jig saw puzzle and managed her stressors pretty well. She has mildly increased anxiety with Celexa 20 mg but her anxiety was better than yesterday and wants to continue Celexa 20 mg to see if this anxiety is transient until she gets used to increased dose of Celexa. She was encouraged to contact her psychiatrist, Dr. Rick lloyd, if she can't tolerate Celexa 20 mg and pt agrees with this. She is pretty optimistic for her future at this point and states she is "hopeful". She still reports that she has residual suicidal thoughts but feels comfortable and competent using newly learned coping skills after being discharged at home. Safety plan was reviewed with the patient briefly again today and she could contract for the safety plan without problem today. Following-up plans with her psychiatrist and therapist after discharge reviewed with the pt and pt verbalized understanding. Pt seems excited and pleased that she can spend today and tomorrow with her fiance since he will take days off tomorrow if she is discharged today. Transition of Care Transition Of Care Record: was reviewed with the patient Advance Directives Advance Directives Information Provided: Yes Advance Directives: No Mental Health Advance Directive: No Advance Directives on File: No Living Will: No Power of Pest Technician: No Advance Directives Reason:: Declines as Mental Health Visit. Risk Factors Assessment Risk factors were mitigated by admission to the inpatient unit, use of medications to target depressive symptoms, education about her diagnoses and treatment recommendations, coordination of care with her outpatient therapist and psychiatrist, involving her in groups and therapy, working on healthy coping skills and a discharge safety plan, and family meetings with fiance whom she lives with presently. Patient is future oriented and optimistic for her future and lives with a supportive fiance, who has good insight regarding mental illness. She is confident and comfortable using her coping skills when she has recurrent suicidal thoughts at home and could contract for the safety plan during the hospital stay. Guns locked securely at home and she doesn't have any access to them. No significant family history of mental illnesses reported. She is no longer at acute risk of self harm or harm to others and can be managed as an outpatient setting. : Yes Do You Have Access To A Gun?: Yes (boyfriends) Health Problems: No Mental Health Diagnoses: Yes Substance Use Disorders: No Previous Attempt: No Previous Attempt; Highly Lethal: No Previous Attempt; Planned: No Previous Attempt; Didn't Tell Anyone: No Family History of Suicide: No Previous Psychiatric Hospitalization: No Hopelessness: No Smoker: No Protective Factors Assessment : No Employed: No (recently furloughed) Stable Relationships: Yes Supportive Family: Yes Tobacco Cessation at Discharge Tobacco Cessation Medication Prescribed at Discharge: Not Applicable/Non-Smoker Practical counseling provided including: recognizing danger situations, developing coping skills and providing basic information about quitting Total Time Total Time Spent: Greater Than 30 Minutes Total Time Includes: Examination of the patient, Discharge Planning, Medication Reconciliation, Communication with other providers and As well as Discharge Data Lab Results 10/23/19 10/23/19 10/23/19 23:54 23:54 23:54 WBC 5.42 RBC 4.11 L Hgb 12.8 Hct 38.0 MCV 92.5 MCH 31.1 MCHC 33.7 RDW Std Deviation 40.4 RDW Coeff of Alo 11.9 Plt Count 315 MPV 9.5 Immature Gran % (Auto) 0.2 Neut % (Auto) 53.9 Lymph % (Auto) 34.1 [place] % (Auto) 4.1 Eos % (Auto) 5.7 Baso % (Auto) 2.0 Immature Gran # (Auto) 0.01 Neut # (Auto) 2.92 Lymph # (Auto) 1.85 [place] # (Auto) 0.22 Eos # (Auto) 0.31 Baso # (Auto) 0.11 Sodium 137 Potassium 4.0 Chloride 103 Carbon Dioxide 27 Anion Gap 7.0 BUN 8 Creatinine 0.78 Est Cr Clr Drug Dosing 86.2 Est GFR ( Amer) 119.1 Est GFR (Non-Af Amer) 102.7 BUN/Creatinine Ratio 10.8 Glucose 90 Calcium 8.8 Magnesium 2.2 Total Bilirubin 0.2 AST 15 ALT 19 Alkaline Phosphatase 67 Total Protein 8.2 Albumin 4.5 Globulin 3.7 Albumin/Globulin Ratio 1.2 Lipase 97 HCG, Qual Specimen Hemolysis Urine Color Urine Appearance Urine pH Ur Specific [place] Urine Protein Urine Glucose (UA) Urine Ketones Urine Blood Urine Nitrite Urine Bilirubin Urine Urobilinogen Ur Leukocyte Esterase Salicylates < 1.7 L Urine Opiates Screen Ur Methadone, Qual Acetaminophen < 2 L Urine Barbiturates Ur Phencyclidine (PCP) U Amphetamin/Meth Scrn MDMA (Ecstasy) Screen U Benzodiazepines Scrn Ur Cocaine Metabolite U Marijuana (THC) Screen Ethyl Alcohol mg/dL 10/23/19 10/23/19 10/24/19 23:54 23:54 00:05 WBC RBC Hgb Hct MCV MCH MCHC RDW Std Deviation RDW Coeff of Alo Plt Count MPV Immature Gran % (Auto) Neut % (Auto) Lymph % (Auto) [place] % (Auto) Eos % (Auto) Baso % (Auto) Immature Gran # (Auto) Neut # (Auto) Lymph # (Auto) [place] # (Auto) Eos # (Auto) Baso # (Auto) Sodium Potassium Chloride Carbon Dioxide Anion Gap BUN Creatinine Est Cr Clr Drug Dosing Est GFR ( Amer) Est GFR (Non-Af Amer) BUN/Creatinine Ratio Glucose Calcium Magnesium Total Bilirubin AST ALT Alkaline Phosphatase Total Protein Albumin Globulin Albumin/Globulin Ratio Lipase HCG, Qual Negative Specimen Hemolysis Urine Color Urine Appearance Urine pH Ur Specific [place] Urine Protein Urine Glucose (UA) Urine Ketones Urine Blood Urine Nitrite Urine Bilirubin Urine Urobilinogen Ur Leukocyte Esterase Salicylates Urine Opiates Screen Neg Ur Methadone, Qual Neg Acetaminophen Urine Barbiturates Neg Ur Phencyclidine (PCP) Neg U Amphetamin/Meth Scrn Neg MDMA (Ecstasy) Screen Neg U Benzodiazepines Scrn Neg Ur Cocaine Metabolite Neg U Marijuana (THC) Screen Neg Ethyl Alcohol mg/dL 129.0 H 10/24/19 10/24/19 00:05 02:28 WBC RBC Hgb Hct MCV MCH MCHC RDW Std Deviation RDW Coeff of Alo Plt Count MPV Immature Gran % (Auto) Neut % (Auto) Lymph % (Auto) [place] % (Auto) Eos % (Auto) Baso % (Auto) Immature Gran # (Auto) Neut # (Auto) Lymph # (Auto) [place] # (Auto) Eos # (Auto) Baso # (Auto) Sodium 143 Potassium 3.8 Chloride 113 H Carbon Dioxide 25 Anion Gap 5.0 BUN 6 L Creatinine 0.72 Est Cr Clr Drug Dosing 93.4 Est GFR ( Amer) 131.2 Est GFR (Non-Af Amer) 113.2 BUN/Creatinine Ratio 9.0 L Glucose 101 H Calcium 8.3 L Magnesium Total Bilirubin AST ALT Alkaline Phosphatase Total Protein Albumin Globulin Albumin/Globulin Ratio Lipase HCG, Qual Specimen Hemolysis Urine Color Yellow Urine Appearance Clear Urine pH 6.0 Ur Specific [place] 1.007 Urine Protein Negative Urine Glucose (UA) Negative Urine Ketones Negative Urine Blood Negative Urine Nitrite Negative Urine Bilirubin Negative Urine Urobilinogen Negative Ur Leukocyte Esterase Negative Salicylates Urine Opiates Screen Ur Methadone, Qual Acetaminophen Urine Barbiturates Ur Phencyclidine (PCP) U Amphetamin/Meth Scrn MDMA (Ecstasy) Screen U Benzodiazepines Scrn Ur Cocaine Metabolite U Marijuana (THC) Screen Ethyl Alcohol mg/dL Hospital Course (1) Depression: 10/23 - The patient was admitted to the [facility]) on q15 min checks (behavioral with suicide precautions) for safety. The patient will participate in group, recreational, and milieu therapies and will be offered additional individual and family sessions as clinically appropriate. It is not clear that her symptoms are a complete failure of Celexa as pandemic is significant contributing factor, past trials currently not available. Will give Celexa 10 mg today as having some GI upset following OD, declines Zofran, accepting of pantoprazole short course. Consider Celexa 15 mg vs other agent when confirm previous med trials. 10/24 - Celexa had been increased to 20mg for this morning's dose. Pt denies exacerbation of anxiety at this time, will continue to monitor. Can consider continuation of 20mg of Celexa versus trial of an alternative agent should anxiety worsen related to the medication - Pt is scheduled for a family meeting with her fiance this afternoon - Has standing Thursday at 1200 appointments with her therapist - Will coordinate appointment with her psychiatrist - Pt denies SI, states that while she is happy she is alive, she is still processing a lot at this time 10/25 - Continue Celexa 20mg qAM. Pt reports mildly increased anxiety after taking the medication today, but admits this resolved with several coping strategies. Denies that anxiety is exacerbated as day continues - Family meeting held with patient's fiance yesterday, he is supportive and will reportedly secure medications - Coordinate outpatient appointments - Pt does endorse SI, but states it is in a range that is manageable - does desire to continue to develop effective coping strategies. 10/26 -Continue Celexa 20 mg qAM as directed. Pt reports she could tolerate mild anxious feeling after taking Celexa but admits that the severity of anxiety was less than yesterday and manageable with coping skills. She feels less anxious during the today's assessment and she is willing to continue Celexa 20 mg to see if she can get used to this. -Follow up with outpatient psychiatrist and therapist as scheduled. -Will be discharged to home today. -No medication called in today since pt has 1 month amount of Celexa 20 mg at home already. Mental Health & Subst Abuse Tx Psychiatrist Name of Psychiatrist: Dr. [place] Psychiatrist's Psychiatric Appointment Comment: [address] [facility] [address], [address], [place], [place] Therapist Name of Therapist: Marilyn Keenan Therapist's Date of Therapist Appointment: 11/02/19 Time of Therapist Appointment: 12:00 p.m. Post Discharge Appointments Primary Care Physician Name Of Family Doctor: None Smoking Cessation Counseling Tobacco Cessation Medication Prescribed at Discharge: Not Applicable/Non-Smoker Contact Information Discharge Discharge Address: [address] [place] [address] Discharge Plan Discharge Items Patient Disposition: Home - Self-Care Reason For Visit: MAJOR DEPRESSIVE D/O RECURRRENT Discharge Diagnosis: Major depressive disorder, recurrent Condition on Discharge: Good Health Concerns: nonne Activity: Per Instructions section Non-emergency contact: Psychiatrist and Therapist Call non-emergency contact if: you have any medication questions and your symptoms worsen Follow-up/Referrals: PCP,NO [Primary Care Provider] - Diet: Regular Addtl Attending Provider Instructions: SPECIAL CARE INSTRUCTIONS: 1. Follow through with your scheduled aftercare appointments. If unable to keep an appointment, please call to reschedule. 2. Take your medication only as prescribed. Medication should not be changed or stopped without the approval of your doctor. In the event of worsening symptoms or concerns about side effects, contact your doctor immediately. 3. Utilize new healthy coping skills, anger management skills, and stress management skills learned during your hospitalization. Journal feelings and process them with a support person. Identify stressors or situations that may result in relapse, deterioration or inappropriate behaviors and develop a plan to deal with those issues. 4. If your coping skills are ineffective and you are in crisis, contact your outpatient providers for direction. If unable to reach your providers, please call [facility] HELP LINE AT or go to the closest Emergency Room. 5. Avoid alcohol and un-prescribed drugs. 6. You have been provided with the Mental Health Advance Directives Pamphlet for your review. AFTERCARE APPOINTMENTS: * Please call your insurance company prior to your scheduled appointment to confirm your aftercare providers are covered. Take your insurance information to your appointments. WHO TO CALL AND WHEN: Medical Emergencies: For questions or emergencies related to your hospital stay, please contact the Inpatient Behavioral Health Unit at [phone]. A psychiatric secretary is on-call 22/12 for the Behavioral Health Unit for emergencies At any time you feel your situation is an emergency, you may also call 911 immediately. Your Discharge Instructions noted above were prepared by provider Stephanie Manuel PA-C and supervised by Dr. Robb. Pending Studies at Discharge: No Stand-Alone Forms: [facility], Suicide Prevention Resources Medications and DC Order Prescriptions: Changed citalopram 20 mg tablet 20 mg PO DAILY Qty: 0 RF: 0 Discharge Orders: Discharge Order (Routine); Ordered 10/27/19 Ordered By: Stephanie Manuel Admission Data Admit Date/Time: 10/24/19 05:02 Attending Provider: Eloisa Dennison Admit Provider: Eloisa Dennison Primary Care Provider: PCP,NO Other Interventions: Discharge Summary Assessment (RN) Last Done: 10/27/19 12:23 PSY Interdisciplinary Discharge Planning Last Done: 10/27/19 12:22 DC Date/Time DO NOT enter until pt leaves facility: 10/27/19 12:45 Coding Level of Care Code 65442 D/C day mgmt > 30 min Diagnoses Depression F32.9 Depression Type: unspecified
== END 2019-10-27 12:45 | disposition home or self-care (01) | DRG 918 ==
LOC: ED 23:23 → 3S 10-24 05:02